=== PATIENT | male | born 1970 | race Caucasian/White ===

== ENCOUNTER → 2017-06-17 | Outpatient (CLI) | payer BC ==
--- NOTE | 2017-06-17 14:14 | US ---
EXAMINATION TYPE: US venous doppler duplex LE LT DATE OF EXAM: 06/17/2017 2:07 PM COMPARISON: NONE CLINICAL HISTORY: 46-year-old male I82.402 DVT. Left leg numbness x 1 month following back surgery SIDE PERFORMED: Left TECHNIQUE: The lower extremity deep venous system is examined utilizing real time linear array sonog reese with graded compression, doppler sonography and color-flow sonography. FINDINGS: VESSELS IMAGED: External Iliac Vein (EIV) Common Femoral Vein Deep Femoral Vein Greater Saphenous Vein * Femoral Vein Popliteal Vein Small Saphenous Vein * Proximal Calf Veins (* superficial vessels) Left Leg: Appears negative for DVT IMPRESSION: No evidence for DVT within the left lower extremity imaged from the groin to the upper calf.
== END | disposition home or self-care (01) ==
LOC: RADUSWWP 13:28
PROVIDERS: ATTEND Neurological Surgery
DX: I82.402 Acute embolism and thrombosis of unspecified deep veins of left lower extremity (principal)

== ENCOUNTER → 2018-08-02 | Outpatient (CLI) | payer BC ==
--- NOTE | 2018-08-02 19:11 | CT ---
EXAMINATION TYPE: CT abdomen pelvis wo con DATE OF EXAM: 08/02/2018 HISTORY: Lower abdominal pain for [address] DLP: 1045 mGycm. Automated Exposure Control for Dose Reduction was Utilized. TECHNIQUE: CT scan of the abdomen and pelvis is performed without oral or IV contrast. COMPARISON: CT abdomen and pelvis December 21, 2015 FINDINGS: Within the limitations of a non-contrast study, the following observations are made. LUNG BASES: No significant abnormality is appreciated. LIVER/GB: There is heterogeneously hypodense consistent with fatty infiltration. PANCREAS: There is mild to moderate diffuse fatty infiltration of the pancreas redemonstrated. SPLEEN: No significant abnormality is seen. ADRENALS: No significant abnormality is seen. KIDNEYS: No renal stones or hydronephrosis is present bilaterally. BOWEL: Evaluation bowel suboptimal secondary to lack of enteric contrast. There is no suspicious smal l or large bowel dilatation. Appendix is surgically absent there are some diverticula in the left and sigmoid colon. There is mild to moderate wall thickening with mild surrounding fat stranding in the mid sigmoid colon axial image 116, CT findings suspicious for a mild or early acute appendicitis. No well-formed fluid collection or abscess is seen. GENITAL ORGANS: Prostate gland is upper limits of normal in size. LYMPH NODES: No greater than 1cm abdominal or pelvic lymph nodes are appreciated. There are prominent but subcentimeter lymph nodes in the left-sided mesentery with mild mesenteric haziness axial image 70 redemonstrated not significantly changed from prior. OSSEOUS STRUCTURES: Postsurgical change right L5-S1 level is now present. Artificial disc material is now seen. Alignment is stable. OTHER: No significant additional abnormality is seen. IMPRESSION: New mild acute diverticulitis mid sigmoid colon in the anterior pelvis. No pneumoperitone um or abscess noted. Stable mild srinivasan mesentery appearance. A Yellow level critical message alert has been initiated for Oziel Palmer DO via the [facility] System on 08/02/2018 7:09 PM. This message alert has been sent to Oziel barrett DO via the preferences provided by the clinician for the receipt of Radiology Critical Findings. Message ID [id number].
== END ==
LOC: RADCTMAIN 18:35
PROVIDERS: ATTEND Family Medicine
DX: R10.9 Unspecified abdominal pain (principal); K57.32 Diverticulitis of large intestine without perforation or abscess without bleeding
CPT/HCPCS: 74176

== ENCOUNTER → 2019-11-23 | Outpatient (CLI) | payer BC | END | disposition home or self-care (01) | LOC: LABWHC1 10:48 | PROVIDERS: ATTEND Family Medicine | DX: M79.672 Pain in left foot (principal); R60.0 Localized edema | CPT/HCPCS: 36415; 85379 ==

== ENCOUNTER → 2021-03-18 | Outpatient (CLI) | payer BC ==
--- NOTE | 2021-03-18 14:08 | CT ---
EXAMINATION TYPE: CT abdomen pelvis wo con DATE OF EXAM: 03/18/2021 HISTORY: Acute pyelonephritis per order. Right flank pain and hematuria for [address] DLP: 954 mGycm. Automated Exposure Control for Dose Reduction was Utilized. TECHNIQUE: CT scan of the abdomen and pelvis is performed with oral but without IV contrast. COMPARISON: CT abdomen and pelvis August 02, 2018 FINDINGS: Within the limitations of a non-contrast study, the following observations are made. LUNG BASES: No significant abnormality is appreciated. LIVER/GB: Liver is heterogeneously isodense to slightly hypodense consistent with diffuse fatty infil tration similar to prior. PANCREAS: Moderate generalized fat replaced atrophy redemonstrated. SPLEEN: No significant abnormality is seen. ADRENALS: No significant abnormality is seen. KIDNEYS: Suspect there are 2 1 to 2 mm calculi in the right kidney reference midpole level coronal im age 63 on current study. No left-sided nephrolithiasis. No hydronephrosis or suspicious perinephric f luid and/or fat stranding. BOWEL: Oral contrast reaches level proximal transverse colon making evaluation distal bowel slightly suboptimal. No suspicious small or large bowel dilatation. Mild to moderate wall thickening and mild surrounding fat stranding proximal to mid sigmoid colon of the upper to mid pelvis extending just lef t of midline. No free air. No well-formed fluid collection or abscess. GENITAL ORGANS: Prostate gland upper limits of normal. LYMPH NODES: No new greater than 1cm abdominal or pelvic lymph nodes are appreciated. OSSEOUS STRUCTURES: Postsurgical change lumbosacral junction with posterior interpedicular screws now identified bilaterally. Grade 1 anterolisthesis L5 on S1 now present. Artificial disc material at th is level redemonstrated. OTHER: No significant additional abnormality is seen. IMPRESSION: Recurrent uncomplicated mild to moderate acute diverticulitis proximal to mid sigmoid col on of the upper to mid pelvis just left of midline. Results communicated to referring physician via telephone at time of dictation.
== END | disposition home or self-care (01) ==
LOC: RADCTMAIN 11:59
PROVIDERS: ATTEND Family Medicine
DX: K57.32 Diverticulitis of large intestine without perforation or abscess without bleeding (principal); N10 Acute pyelonephritis
CPT/HCPCS: 74176; Q9967

== ENCOUNTER → 2022-03-17 | Outpatient (CLI) | payer BC ==
--- NOTE | 2022-03-17 09:27 | MR ---
EXAMINATION TYPE: MR knee RT wo con DATE OF EXAM: 03/17/2022 COMPARISON: None HISTORY: UNSPECIFIED INTERNAL DERANGEMENT OF RIGHT KNEE, PAIN X 6 MONTHS TECHNIQUE: Multiplanar, multisequence imaging of the right knee is performed without IV contrast. FINDINGS: MEDIAL MENISCUS: Grade 3 abnormal signal posterior horn medial meniscus compatible with meniscal tear LATERAL MENISCUS: Anterior and posterior horns are intact without tear. CRUCIATE LIGAMENTS: The anterior and posterior cruciate ligaments are intact and unremarkable. COLLATERAL LIGAMENTS: The medial collateral ligament and lateral collateral ligament complex are inta ct and unremarkable. EXTENSOR MECHANISM: Visualized quadriceps and patellar tendons are intact. Small amount of fluid in t he suprapatellar bursa. Grade III chondromalacia of the lateral segment EFFUSION: No significant suprapatellar joint effusion. POPLITEAL CYST: No popliteal/delgado cyst. TRICOMPARTMENT SPACES: Mild narrowing medial compartment knee joint with erosive changes. Grade II ch ondromalacia femoral articular cartilage. BONE MARROW SIGNAL: No marrow edema or contusion. Tiny areas of abnormal signal involving the patella likely reactive measuring 5 mm IMPRESSION: 1. Posterior horn medial meniscal tear. 2. Grade III chondromalacia lateral patellar facet.
== END | disposition home or self-care (01) ==
LOC: RADMRIMAIN 08:32
PROVIDERS: ATTEND Family Medicine
DX: S83.241A Other tear of medial meniscus, current injury, right knee, initial encounter (principal); M22.41 Chondromalacia patellae, right knee

== ENCOUNTER → 2024-04-04 | Outpatient (CLI) | payer BC ==
--- NOTE | 2024-04-04 11:14 | XR ---
EXAMINATION TYPE: XR chest 2V DATE OF EXAM: 04/04/2024 10:22 AM CLINICAL INDICATION:Male, 53 years old with history of R06.02 SOB; [facility] COMPARISON: None. TECHNIQUE: XR chest 2V Frontal and lateral views of the chest. FINDINGS: Lungs/Pleura: There is no evidence of pleural effusion, focal consolidation, or pneumothorax. Pulmonary vascularity: Unremarkable. Heart/mediastinum: Cardiomediastinal silhouette is unremarkable. Musculoskeletal: No acute osseous pathology. Other findings: None Lines/Tubes: IMPRESSION: No acute cardiopulmonary disease/process.
== END | disposition home or self-care (01) ==
LOC: RADXRMAIN 10:11
PROVIDERS: ATTEND Family Medicine
DX: R06.02 Shortness of breath (principal)
CPT/HCPCS: 71046

== ENCOUNTER → 2024-04-13 | Outpatient (CLI) | payer BC ==
--- NOTE | 2024-04-14 18:00 | CA ---
Transthoracic Echo Report Name: Lukas Samuels Age: 53 Gender: M : 1970 Exam Date: 04/13/2024 13:59 Exam Location: [facility] Ht (in): 66 Wt (lb): 235 Ordering Physician: Oziel Palmer DO Attending/Referring Phys: Correctional Sergeant Rand Mistry RDCS Procedure CPT: Indications: R06.02 SOB R07.9 CHEST PAIN Cardiac Hx: Technical Quality: Good Contrast 1: Total Dose (mL): Contrast 2: Total Dose (mL): MEASUREMENTS (Male / Female) Normal Values 2D ECHO LV Diastolic Diameter PLAX 5.2 cm 4.2 - 5.9 / 3.9 - 5.3 cm LV Systolic Diameter PLAX 3.7 cm IVS Diastolic Thickness 1.1 cm 0.6 - 1.0 / 0.6 - 0.9 cm LVPW Diastolic Thickness 1.0 cm 0.6 - 1.0 / 0.6 - 0.9 cm LV Relative Wall Thickness 0.4 RV Internal Dim ED PLAX 3.9 cm LVOT Diameter 2.3 cm LV Diastolic Volume MOD BP 144.6 cm??? 67 - 155 / 56 - 104 cm??? LV Systolic Volume MOD BP 53.9 cm??? 22 - 58 / 19 - 49 cm??? LV Ejection Fraction MOD BP 62.7 % >= 55 % LV Cardiac Index MOD BP 2311.5 cm???/min???m??? LV Diastolic Volume MOD 4C 148.8 cm??? LV Systolic Volume MOD 4C 58.9 cm??? LV Ejection Fraction MOD 4C 60.4 % LV Cardiac Index MOD 4C 2290.8 cm???/min???m??? LV Diastolic Length 4C 8.9 cm LV Systolic Length 4C 7.3 cm LV Diastolic Volume MOD 2C 136.7 cm??? LV Systolic Volume MOD 2C 48.9 cm??? LV Ejection Fraction MOD 2C 64.2 % LV Cardiac Index MOD 2C 2235.3 cm???/min???m??? LV Diastolic Length 2C 9.2 cm LV Systolic Length 2C 7.4 cm LA Volume 60.9 cm??? 18 - 58 / 22 - 52 cm??? LA Volume Index 26.8 cm???/m??? 16 - 28 cm???/m??? Ascending Aorta Diameter 3.8 cm DOPPLER AV Peak Velocity 128.9 cm/s AV Peak Gradient 6.7 mmHg AV Mean Velocity 87.6 cm/s AV Mean Gradient 3.5 mmHg AV Velocity Time Integral 26.3 cm LVOT Peak Velocity 94.6 cm/s LVOT Peak Gradient 3.6 mmHg LVOT Velocity Time Integral 19.2 cm LVOT Stroke Volume 76.7 cm??? LVOT Stroke Volume Index 35.8 ml/m??? LVOT Cardiac Index 1955.0 cm???/min???m??? AV Area Cont Eq vti 2.9 cm??? AV Area Cont Eq pk 2.9 cm??? MV Area PHT 4.3 cm??? Mitral E Point Velocity 48.1 cm/s Mitral A Point Velocity 46.8 cm/s Mitral E to A Ratio 1.0 MV Deceleration Time 175.9 ms TR Peak Velocity 218.7 cm/s TR Peak Gradient 19.1 mmHg Right Atrial Pressure 5.0 mmHg Pulmonary Artery Systolic Pressu 24.1 mmHg Right Ventricular Systolic Press 24.1 mmHg PV Peak Velocity 98.0 cm/s PV Peak Gradient 3.8 mmHg FINDINGS Left Ventricle Left ventricular ejection fraction is estimated at 55-60 %. Left ventricular cavity size normal. Left ventricular wall thickness normal. No obvious regional wall motion abnormalities. Right Ventricle Normal right ventricular size and function. Right ventricular systolic pressure within normal limits. Right Atrium Normal right atrial size. Left Atrium Mildly increased left atrial volume. Mildly increased left atrial area. Mitral Valve Structurally normal mitral valve. No evidence for mitral valve prolapse. No mitral stenosis. Trace mitral regurgitation. Aortic Valve Trileaflet aortic valve. No aortic valve stenosis. Trace aortic regurgitation. Tricuspid Valve Structurally normal tricuspid valve. No tricuspid stenosis. Mild tricuspid regurgitation. Pulmonic Valve Structurally normal pulmonic valve. No pulmonic regurgitation. Mild pulmonic regurgitation. Pericardium No pericardial effusion. Aorta Normal size aortic root and proximal ascending aorta. CONCLUSIONS Normal LV size and function Previewed by: Dr. Shawn Kenney MD (Electronically Signed) Final Date: 14 April 2024 17:59
== END | disposition home or self-care (01) ==
LOC: RADECHMAIN 13:36
PROVIDERS: ATTEND Family Medicine
DX: R07.9 Chest pain, unspecified (principal); R06.2 Wheezing
CPT/HCPCS: 93306

== ENCOUNTER → 2024-05-03 | Outpatient (CLI) | payer BC ==
--- NOTE | 2024-05-03 11:24 | CA ---
Exercise Stress Test Report Name: Lukas Samuels Exam Date: 05/03/2024 09:04 Exam Location: [facility] Ht (in): 66 Wt (lb): 230 BSA: 2.12 Ordering Phys: Oziel Palmer DO Referring Phys: BROOKS Technologist: Casandra Araiza RDCS Age: 53 Gender: M : 1970 Procedure CPT: Indications: R06.2 SOB R07.9 CHEST PAIN ICD-10 Codes: Patient History: CP, GIANCARLO, PALP, HTN, FMAILY HX Medications: METFORMIN, ANTACID Meds past 24 hrs: Pretest Chest Pain: STRESS TEST Mikey Protocol Exercise Duration (min:sec): 09:[address] Depressions (mm): 0 Angina Score: 0 Tolentino Score: 9 Resting HR (bpm): 68 Peak HR (bpm): 143 Resting BP (mmHg): 131 / 90 Peak BP (mmHg): 182 / 69 MPHR: 167 Target HR: 142 % MPHR: 86 METS: 10.3 Total Dose: Peak Dose: Atropine: Double Product: 26417 BP Response: Stress Termination: Reached target heart rate Stress Symptoms: No chest pain or symptoms Stress Summary: The patient's target heart rate was achieved ECG ANALYSIS Resting ECG: Sinus rhythm. Normal conduction. No arrhythmias. Normal repolarization. Stress ECG: No ECG evidence of ischemia with exercise. CONCLUSIONS Patient falls into low-risk group (DTS >= +5). This associates the patient with an annual CV mortality <= 0.5%. 1. Good exercise tolerance 2. Normal electrocardiographic response to exercise with no evidence of stress induced ischemia Dr. Khadijah Lynne MD (Electronically Signed) Final Date: 03 May 2024 11:23
== END | disposition home or self-care (01) ==
LOC: RADNMMAIN 08:34
PROVIDERS: ATTEND Family Medicine
DX: R06.2 Wheezing (principal); R07.9 Chest pain, unspecified
CPT/HCPCS: 93017

== ENCOUNTER 2024-11-24 12:57 | Day surgery (SDC) | payer BC ==
[~2024-11-24 12:57] MED LIST: LIDOCAINE 1% (10MG/ML) FOR IV START INTRADERMA PRN
[2024-11-24 13:30] VITALS: RESP 16; TEMP 97.7
[2024-11-24] MEDS: IV FLUID CONTINUATION 1,000 ML IV ONE (13:31)
[2024-11-24] MEDS: LACTATED RINGERS 1,000 ML IV SCH (13:35)
[2024-11-24] MEDS ORDERED: PROPOFOL 10 MG/ML 20 ML VIAL IV ONE (14:40)
--- NOTE | 2024-11-24 14:46 | P.GSHP ---
History of Present Illness H&P Date: 11/24/24 Chief Complaint: Colovesical fistula 54-year-old male here for colonoscopy. Patient recently diagnosed with colovesical fistula. Patient with history of known diverticulosis. No bowel complaints. No family history of colon cancer. Past Medical History Past Medical History: GERD/Reflux, Hypertension, Sleep Apnea/CPAP/BIPAP Additional Past Medical History / Comment(s): bipap used, History of Any Multi-Drug Resistant Organisms: None Reported Past Surgical History: Adenoidectomy, Appendectomy, Back Surgery Additional Past Surgical History / Comment(s): TONSILS AND UVP,back surgery s1- l5 x2, Past Anesthesia/Blood Transfusion Reactions: No Reported Reaction Smoking Status: Former smoker - Past Family History Mother Family Medical History: No Reported History Medications and Allergies Home Medications Medication Instructions Recorded Confirmed Type Omeprazole [PriLOSEC] 20 mg PO DAILY 02/07/16 11/24/24 History Losartan Potassium 50 mg PO DAILY 11/22/24 11/24/24 History Smz/Tmp 1 tab PO BID 11/22/24 11/24/24 History allopurinoL 100 mg PO DAILY 11/22/24 11/24/24 History Allergies Allergy/AdvReac Type Severity Reaction Status Date / Time No Known Allergies Allergy Verified 11/24/24 13:33 Surgical - Exam Vital Signs Temp Pulse Resp BP Pulse Ox 97.7 F 63 16 126/60 93 L 11/24/24 13:26 11/24/24 13:26 11/24/24 13:26 11/24/24 13:26 11/24/24 13:26 Physical exam: General: Well-developed, well-nourished HEENT: Normocephalic, sclerae nonicteric Abdomen: Nontender, nondistended Extremities: No edema Neuro: Alert and oriented Assessment and Plan (1) Colovesical fistula Narrative/Plan: Will proceed with colonoscopy at this time. Current Visit: Yes Status: Acute Code(s): N32.1 - VESICOINTESTINAL FISTULA SNOMED Code(s): 42457548
--- NOTE | 2024-11-24 14:56 | P.PCN ---
Date of Procedure: 11/24/24 Procedure(s) Performed: PREOPERATIVE DIAGNOSIS: Colovesical fistula POSTOPERATIVE DIAGNOSIS: Sigmoid diverticulosis with luminal narrowing and findings suggestive of diverticulitis PROCEDURE: Attempted colonoscopy ANESTHESIA: MAC SURGEON: José Miguel Kessler M.D. SPECIMENS: None ENDOSCOPIC PROCEDURE: The patient was placed on the endoscopy table in the left decubitus position. The Olympus adult colonoscope was inserted into the anus and passed under direct visualization to the mid sigmoid colon. The patient had diverticulosis present and there was an area of mucosal erythema and luminal narrowing noted. This did not appear malignant. We were unable to advance beyond that section because of tortuosity. The pediatric scope was then utilized. We were able to make it to the same location but were unable to advance proximal to the area of narrowing. The visualized sigmoid and rectum was otherwise normal. Digital rectal examination was normal. The patient was taken to the recovery room in stable condition per anesthesia guidelines. RECOMMENDATIONS: Will discuss findings with patient. Check CT abdomen pelvis. Likely referral to colorectal surgery for laparoscopic sigmoid colectomy.
[2024-11-24 15:49] VITALS: BP 122/75; PULSE 60
== END 2024-11-24 15:57 | disposition home or self-care (01) ==
LOC: ORWHC2ENDO 12:57
PROVIDERS: ATTEND Surgery
DX: N32.1 Vesicointestinal fistula (principal); K57.30 Diverticulosis of large intestine without perforation or abscess without bleeding; Z53.8 Procedure and treatment not carried out for other reasons; I10 Essential (primary) hypertension; G47.33 Obstructive sleep apnea (adult) (pediatric); K21.9 Gastro-esophageal reflux disease without esophagitis; Z79.899 Other long term (current) drug therapy; Z87.891 Personal history of nicotine dependence
CPT/HCPCS: 45378; J2704

== ENCOUNTER → 2024-12-01 | Outpatient (CLI) | payer BC ==
--- NOTE | 2024-12-01 14:32 | CT ---
EXAMINATION TYPE: CT abdomen pelvis w con DATE OF EXAM: 12/01/2024 1:07 PM COMPARISON: 03/18/2021 CLINICAL INDICATION: Male, 54 years old with history of N32.1 COLOVESICAL FISTULA, air while urinatin g, COLOVESICAL FISTULA, TECHNIQUE: Contiguous axial scanning of the abdomen and pelvis following administration of 100 ml Iso anamika 300 IV contrast. Additional rectal contrast is administered. Delayed images through the kidneys a nd coronal/sagittal reconstructions performed. CT DLP: 1551 mGycm, Automated exposure control for dose reduction was used. FINDINGS: Heart normal size without pericardial effusion. Lung bases clear without pleural effusion. No focal liver lesion or biliary ductal dilatation. Portal venous system is patent. Gallbladder, adrenal glands, left kidney, and atrophic pancreas show no gross abnormality. Spleen upp er limits of normal in size at 13.2 cm. A couple punctate nonobstructive 3 mm right renal stones. Symmetric uptake and excretion of contrast from both kidneys. No dilated small bowel, free fluid, or free air. Numerous small, nonenlarged mesenteric lymph nodes scattered throughout remain unchanged. Minimal jim tral abdominal Gabrielle mesentery unchanged. Chronic changes are suggested. Some surgical material at the cecum suggesting prior appendectomy. There is mild to moderate stool. S igmoid diverticulosis. There is moderate annular thickening along the proximal to mid sigmoid colon f or a span of 6.5 cm. Changes appear to be ongoing or recurrent from 03/18/2021. Kbhs-ae-dbharera surro unding inflammatory fat stranding. Suggestion of a small fistulous tract possibly extending between t he mid to distal colon, axial image 62 and a second adjacent communication from the mid sigmoid cours ing downward to the dome of the bladder, sagittal image 65 and axial image 56. Focal bladder dome wal l thickening with foci of air. Trace intraluminal bladder air as well. Tiny 7 mm soft tissue nodule along the anterior aspect of the left side of the bladder probably a lucy ctive lymph node. Prostate gland measures 4.7 cm wide. Rectal tube and rectal contrast are present. No abnormal extensi on of contrast is identified at this time. Bones: Grade 2 anterolisthesis L5-S1 with L5-S1 posterior fusion hardware for suspected previous spon dylolysis. IMPRESSION: 1. SIGMOID DIVERTICULOSIS. THERE IS MODERATE CIRCUMFERENTIAL THICKENING AT THE MID SIGMOID COLON (FOR A SPAN OF 6.5 CM ) WITH SURROUNDING INFLAMMATION. CORRELATE FOR ACUTE OR SUBACUTE DIVERTICULITIS. RE COMMEND DIRECT VISUALIZATION WHEN ABLE TO EXCLUDE UNDERLYING NEOPLASM. 2. POSSIBLE SMALL COLO-COLONIC FISTULA FROM THE MID SIGMOID TO THE DISTAL SIGMOID, AXIAL IMAGE 62. 3. ADDITIONAL FISTULA SUGGESTED FROM THE MID SIGMOID TO THE LEFT BLADDER DOME, SAGITTAL IMAGE 65. [facility], Workstation: [employer], 12/01/2024 2:30 PM
== END | disposition home or self-care (01) ==
LOC: RADCTMAIN 11:31
PROVIDERS: ATTEND Surgery
DX: N32.1 Vesicointestinal fistula (principal); K57.30 Diverticulosis of large intestine without perforation or abscess without bleeding
CPT/HCPCS: 74177; Q9967

== ENCOUNTER → 2025-03-02 | Outpatient (CLI) | payer BC ==
[2025-03-02 16:07] VITALS: BP 137/86; PULSE 68; RESP 16; TEMP 98.2
--- NOTE | 2025-03-02 17:17 | P.PROGSL ---
Subjective DATE: 03/02/2025 FOLLOW UP VISIT. Patient with obstructive sleep apnea hypopnea syndrome return to sleep center for follow-up visit. This is first visit after patient started to use new CPAP unit. Information from previous visit have been reviewed. Patient is using PAP equipment every night for the whole night, getting PAP supplies in time. The patient does not have significant problems with the mask, PAP unit and humidification. Notrees sleepiness scale is 9, which is normal. I checked information from PAP unit. PAP unit pressure 7 cm H2O. Usage is 96% for more then 4 hours, average 8.6 hours per night. Leak is 5 l/m, which is in acceptable range. Apnea Hypopnea Index is 0.4, which is normal. MEDICATIONS have been reviewed, please see below. During physical exam: GENERAL: A pleasant patient without any distress. VITAL SIGNS: Please see below, weight is 224 lbs. HEENT: PERRLA, EOMI.low position of soft palate, Mallapati 4 . NECK: Supple. No JVD. LUNGS: Clear to percussion and to auscultation. Good air exchange. No wheezing or rhonchi. HEART: S1, S2 regular. ABDOMEN: Soft and nontender.[] EXTREMITIES: No clubbing or cyanosis. FISH HOUSEKEEPER: Awake, alert, and oriented x3. No focal deficit. Impressions: 1. Obstructive sleep apnea-hypopnea syndrome. Patient demonstrated great compliance with treatment, benefiting from treatment. 2. Obesity. 3. Hypertension. 4. Status post UPPP, tonsillectomy and adenoidectomy. 5. Acid reflux. 6. Gout. 7. Back problems, status post back surgical treatment. Plan: 1. Continue using PAP equipment every night for the whole night. 2. Sleep hygiene with regular time in bed for at least 7.5-8 hours 3. PAP unit should stay lower then position of the head. 4. Advised patient to remove all remaining water from humidifier canister daily and make it dry after each usage. Refill canister with fresh distilled water before each usage. 5. Watching and losing weight. 6. Precautions related to driving. No driving if feel any sleepiness. 7. I will maintain prescription for PAP supplies including mask, tube, filters. 8. Follow up visit in 8 months or earlier if patient has any problems. Thank you very much for allowing me to participate in the management of your patient. Kirill Hatch MD, PhD, FAASM. Diplomat of [place] [employer], Sleep Medicine Board by [place] [employer] [facility] Objective - Vital Signs Vital Signs: Vital Signs Temp 98.2 F 03/02/25 16:06 Pulse 68 03/02/25 16:06 Resp 16 03/02/25 16:06 BP 137/86 03/02/25 16:06 Pulse Ox 97 03/02/25 16:06 FiO2 Home Medications: Home Medications Medication Instructions Recorded Confirmed Type Omeprazole [PriLOSEC] 20 mg PO DAILY 02/07/16 12/07/24 History Losartan Potassium 50 mg PO DAILY 11/22/24 12/07/24 History Smz/Tmp 1 tab PO BID 11/22/24 11/24/24 History allopurinoL 100 mg PO DAILY 11/22/24 12/07/24 History Sulfamethox-Tmp 800-160Mg [Bactrim 1 tab PO BID #20 tab 11/24/24 Rx DS 800-160 mg]
== END ==
LOC: 3 N SLEEP 15:34
PROVIDERS: ATTEND Internal Medicine
DX: G47.33 Obstructive sleep apnea (adult) (pediatric) (principal); E66.9 Obesity, unspecified; I10 Essential (primary) hypertension; K21.9 Gastro-esophageal reflux disease without esophagitis; M10.9 Gout, unspecified; F17.200 Nicotine dependence, unspecified, uncomplicated; Z90.89 Acquired absence of other organs; Z99.89 Dependence on other enabling machines and devices; Z98.890 Other specified postprocedural states
CPT/HCPCS: 99212